=== PATIENT | female | born 1945 ===

== ENCOUNTER 2022-02-10 13:46 | Outpatient (REF) | payer MEDICARE, SELFPAY ==
--- NOTE | ~2022-02-10 | XR_ITS ---
EXAMINATION: XR AP STANDING VIEW KNEE, BILATERAL XR KNEE, LEFT CLINICAL INFORMATION: Knee pain. COMPARISON: None TECHNIQUE: AP standing views of both knees. Lateral and sunrise views of the left knee. FINDINGS: Marked lateral compartment narrowing of the left knee with sclerosis, prominent marginal osteophytes, and genu valgus. Small marginal osteophytes in the patellofemoral and medial compartments. There is a moderate joint effusion. No fracture. Mild medial and lateral compartment osteoarthritis is noted on the AP view of the right knee. XR/XR knee LT 2V IMPRESSION: Severe lateral compartment osteoarthritis of the left knee.
--- NOTE | ~2022-02-10 | XR_ITS ---
EXAMINATION: XR AP STANDING VIEW KNEE, BILATERAL XR KNEE, LEFT CLINICAL INFORMATION: Knee pain. COMPARISON: None TECHNIQUE: AP standing views of both knees. Lateral and sunrise views of the left knee. FINDINGS: Marked lateral compartment narrowing of the left knee with sclerosis, prominent marginal osteophytes, and genu valgus. Small marginal osteophytes in the patellofemoral and medial compartments. There is a moderate joint effusion. No fracture. Mild medial and lateral compartment osteoarthritis is noted on the AP view of the right knee. XR/XR knee standing BI IMPRESSION: Severe lateral compartment osteoarthritis of the left knee.
== END 2022-02-10 13:47 | disposition home or self-care (01) ==
LOC: HO.HOSX 13:46
PROVIDERS: Visit Provider Physician Assistant
DX: M25.561 Pain in right knee (principal); M17.12 Unilateral primary osteoarthritis, left knee; M21.062 Valgus deformity, not elsewhere classified, left knee
CPT/HCPCS: 73560; 73565; 99202